=== PATIENT | male | born 1995 | race Caucasian/White ===

== ENCOUNTER 2022-01-03 00:57 | Emergency (ER) | payer OTHER ==
[~2022-01-03] VITALS: Ht 182.9 cm; Wt 93.6 kg
[2022-01-03 01:11] VITALS: BP 115/72
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
== END 2022-01-03 01:34 | disposition home or self-care (01) ==
LOC: ER 00:57
DX: N48.89 Other specified disorders of penis (principal); N50.812 Left testicular pain; N50.811 Right testicular pain
CPT/HCPCS: 99281